=== PATIENT | female | born 1955 | race American Indian/Alaskan Native ===

== ENCOUNTER 2019-04-15 08:00 | Day surgery (SDC) | payer OTHER ==
[2019-04-15] MEDS ORDERED: SODIUM CHLORIDE 0.9% 500 ML 500 ML IV SCH (09:00)
[2019-04-15 09:07] LABS: Hematocrit 37.3 % (30.3-42.9); Hemoglobin 12.3 gm/dl (10.1-14.3); Mean Corpuscular HGB Conc 33 % (30-34); Mean Corpuscular Volume 83 fl (79-97); Platelet Count 329 K/mm3 (140-440); Red Blood Count 4.52 M/mm3 (3.65-5.03); Red Cell Distribution Width 14.5 % (13.2-15.2)
[2019-04-15 09:21] LABS: BUN/Creatinine Ratio 10; Blood Urea Nitrogen 8 mg/dL (7-17); Calcium 9.2 mg/dL (8.4-10.2); Hemolysis Index 7
[2019-04-15 09:33] LABS: INR 0.99 (0.87-1.13)
[2019-04-15 09:34] LABS: Partial Thromboplastin Time 27.7 Sec. (24.2-36.6)
[2019-04-15] MEDS ORDERED: HEPARIN 10,000 UNITS/10 ML VIAL ONE (10:46)
[2019-04-15] MEDS ORDERED: HEPARIN/NS 5000 UNIT/500ML 500 ML IR ONE (10:46)
[2019-04-15] MEDS ORDERED: ceFAZolin/Water 2 GM/20 ML 2 GM/20 ML SYRINGE IV ONE (10:47)
[2019-04-15] MEDS ORDERED: LIDOCAINE 1%/EPINEPHRINE 1:100,000 VIAL (20 ML) INFILTRATI ONE ×2 (10:47→11:34)
[2019-04-15] MEDS: MIDAZOLAM 2 MG/2 ML INJ ONE ×2 (11:24→11:28)
[2019-04-15] MEDS: fentaNYL 100 MCG/2 ML INJ ONE ×2 (11:24→11:28)
[2019-04-15] MEDS ORDERED: MIDAZOLAM 2 MG/2 ML INJ ONE (11:33)
[2019-04-15] MEDS ORDERED: fentaNYL 100 MCG/2 ML INJ ONE (11:34)
--- NOTE | 2019-04-15 12:23 | Short Stay Summary ---
Short Stay Documentation Date of service: 04/15/19 Narrative H&P: 63 year old female with history of breast cancer and colon cancer with metastatic lesion to the liver. - History Principal diagnosis: Metastatic colon cancer Past Medical History: cancer, hypertension Past Surgical History: hernia repair, mastectomy, bowel surgery Social history: no significant social history - Allergies and Medications Current Medications: Allergies No Known Allergies Allergy (Unverified 04/15/19 08:00) Home Medications Medication Instructions Recorded Confirmed Last Taken Type Losartan/Hydrochlorothiazide 1 tab PO DAILY 04/15/19 04/15/19 04/15/19 06:30 History [Losartan-Hctz 100-25 mg Tab] 1 tab Metoprolol [Lopressor TAB] 50 mg PO DAILY 04/15/19 04/15/19 04/15/19 06:30 History 50 mg Active Medications Sodium Chloride (Nacl 0.9% 500 Ml) 500 mls @ 50 mls/hr IV DIRECT CLAIRE Last Admin: 04/15/19 09:21 Dose: 50 mls/hr Documented by: - Physical exam General appearance: no acute distress Lungs: Normal air movement Gastrointestinal: normal Extremities: normal temperature, normal color - Brief post op/procedure progress note Date of procedure: 04/15/19 Pre-op diagnosis: Metastatic colon cancer Post-op diagnosis: same Procedure: port placement under us & fl guidance Anesthesia: local (w/ conscious sedation) Surgeon: DELVIS LÓPEZ Estimated blood loss: minimal Condition: stable - Hospital course Hospital course: Tolerated procedure well. Ready for discharge. - Disposition Condition at discharge: Stable Disposition: DC-[id number] TO HOME OR SELFCARE - Discharge Diagnoses (1) Metastatic colon cancer to liver Status: Acute (2) History of right breast cancer Status: Acute (3) History of left breast cancer Status: Acute (4) HTN (hypertension) Status: Acute (5) History of hernia repair Status: Acute Short Stay Discharge Plan Activity: advance as tolerated Weight Bearing Status: Weight Bear as Tolerated Diet: regular Wound: keep clean and dry, other (take off tegaderm in 24-48 hrs. Do not get wet for 7 days (sponge bath).) Follow up with: ARMANDO ARORA MD [Primary Care Provider] - 7 Days
--- NOTE | 2019-04-15 12:25 | Operative Report ---
Operative Report Operative Report: EXAM: 1. Ultrasound-guided puncture of the right internal jugular vein 2. Fluoroscopic-guided placement of a right internal jugular tunneled 8 Fr BARD port placement. DATE: 04/15/19 INDICATION: 63-year-old female with metastatic colon cancer MEDICATIONS: Please see nursing report for full details. DEVICES: 8 Fr single lumen power port CONTRAST: None SURGEON: Jerrell Wood MD PROCEDURE: The risks, benefits, and alternatives were discussed and informed consent was obtained. The patient was transported to the angiography suite in satisfactory/stable condition and was transported onto the angiography table. The patient's right internal jugular vein was assessed with ultrasound and determined to be patent prior to procedure. The patient was prepped and draped in a sterile fashion. The puncture site was anesthetized. Under sonographic guidance, the right internal jugular vein was punctured with a 21-gauge micropuncture needle and a 0.018 inch wire was advanced into the inferior vena cava. The micropuncture needle was exchanged for a transitional dilator and the wire was retracted into the right atrium to fozia intravascular distance. The wire and inner dilator were removed. 0.035 inch wire was advanced through the transitional dilator into the inferior vena cava. A suitable port pocket site was identified on the patient's chest inferior and lateral to the venotomy. The site was anesthetized with local anesthetic at the pocket and the track was anesthetized. Incision was made with a 15 blade extending approximately 2 cm. The port was created with the use of a hemostat and hemostasis was achieved with manual compression. The port pocket was irrigated. The port was tested and the port was attached to the tubing. The port was the retested and attached to the tunneling device. The port was placed in the pocket and then tunneled to the venotomy. The port tubing was cut to predetermined length. Over the 0.035 inch wire, serial dilatation was performed with ultimate placement of a peel-away sheath. The catheter was advanced through the peel- away sheath after the wire was removed and positioned centrally under fluoroscopic guidance. The peel-away sheath was removed. The pocket was closed in 2 layers with multiple deep interrupted 3-0 Vicryl sutures with a running subcuticular 4-0 Vicryl suture. The venotomy was closed with a single deep interrupted 3-0 Vicryl suture. Dermabond was applied to both sites and Steri-Strips were then applied. The port was the catheter was charged with heparin 200 units/mL space. The patient was transferred from the angiography suite back to the floor in stable condition. FINDINGS: 1. Excellent flow was obtained through the port. 2. The catheter tip is in the right atrium. IMPRESSION: 1. Successful ultrasound and fluoroscopically guided placement of a right internal jugular tunneled 8 [place] Bard signal lumen power port.
[2019-04-15 13:04] VITALS: BP 132/47
== END 2019-04-15 13:30 | disposition home or self-care (01) ==
LOC: CATHLABREC 08:00
PROVIDERS: ATTEND Radiology Diagnostic Radiology
DX: C18.9 Malignant neoplasm of colon, unspecified (principal); C79.51 Secondary malignant neoplasm of bone; I10 Essential (primary) hypertension; Z79.899 Other long term (current) drug therapy; Z85.3 Personal history of malignant neoplasm of breast; Z98.890 Other specified postprocedural states; Z90.49 Acquired absence of other specified parts of digestive tract
CPT/HCPCS: 36415; 36561; 76937; 77001; 80048; 85027; 85610; 85730; 99156; 99157; C1788; J0690; J1644; J2250; J3010; J7040